=== PATIENT | male | born 1955 | race Caucasian/White ===

== ENCOUNTER 2019-06-09 10:39 | Inpatient (IN) | payer BC ==
[~2019-06-09] VITALS: Ht 170.1 cm; Wt 88.5 kg
[2019-06-09] MEDS ORDERED: AZOR 5-20 MG T1 EACH PO (12:11)
[2019-06-09] MEDS ORDERED: CRESTOR10 M1 PO (12:11)
[2019-06-09] MEDS ORDERED: OMEPRAZOLE20 M2 PO (12:12)
[2019-06-09] MEDS ORDERED: BYSTOLIC10 MG PO (12:12)
[2019-06-09] MEDS ORDERED: ASPIRIN CHEWABL81 MG PO (12:13)
[2019-06-09] MEDS ORDERED: MONTELUKAST SOD10 MG PO (12:13)
--- NOTE | 2019-06-09 12:29 | NUR ---
MSADMTime: N A 64 year old MALE admitted to under services of JOSEPHINE VASQUEZ DO. Pt. arrived via ambulatory from [place]. Chief complaint: ALCOHOL WITHDRAWAL. YASMINE COE
--- NOTE | 2019-06-09 13:31 | NUR ---
PATIENT MEETS [facility]. CIWA=15. [place] STAFF PROVIDED PATIENT WITH REFERRAL OPTIONS AND ALSO INFORMATION ON THE [facility] SHOT. PATIENT IS UNDECIDED ON HIS AFTERCARE PLAN. [facility] STAFF WILL FOLLOW UP WITH PATIENT. YESSY BRADEN B.A. LUMP RECEIVER
[2019-06-09 13:41] LABS: BASO % 0.4 % (0.0-1.0); HEMOGLOBIN 14.9 g/dl (14.0-18.0); LYMPH # 1.2 10*3/uL (1.3-4.4); LYMPH % 21.4 % (27.0-41.0); MEAN CELL VOLUME 95.7 fl (80.0-94.0); MEAN CORPUSCULAR HGB 32.4 pg (27.0-31.0); MEAN CORPUSCULAR HGB CONC 33.9 g/dl (33.0-37.0); MONO # 0.4 10*3/uL (0.1-1.0); MONO % 7.8 % (3.0-9.0); NEUT % 70.2 % (47.0-73.0); PLATELET COUNT AUTOMATED 123 10*3/uL (130-400); RED CELL DISTRI WIDTH 12.8 % (0-14.5); WHITE BLOOD COUNT 5.6 10*3/uL (4.8-10.8)
[2019-06-09 13:42] LABS: BILIRUBIN NEGATIVE (NEGATIVE); BLOOD TRACE-INTACT (NEGATIVE); CLARITY SL CLOUDY (CLEAR); COLOR YELLOW (YELLOW); GLUCOSE NEGATIVE (NEGATIVE); KETONE 2+ (NEGATIVE); LEUKO ESTERASE NEGATIVE (NEGATIVE); NITRITE NEGATIVE (NEGATIVE); SPECIFIC GRAVITY >= 1.030 (1.005-1.030)
[2019-06-09 13:50] LABS: INTERNATIONAL NORM RATIO 0.9 (2.0-3.5)
[2019-06-09 13:51] LABS: URINE AMPHETAMINES < 1000 (1000ng/ml); URINE BARBITURATES < 200 (200ng/ml); URINE BENZODIAZEPINES < 200 (200ng/ml); URINE CANNABINOIDS (THC) < 50 (50ng/ml); URINE COCAINE < 300 (300ng/ml); URINE METHADONE < 300 (300ng/ml); URINE OPIATES < 300 (300ng/ml)
[2019-06-09 13:56] LABS: ALBUMIN 4.6 gm/dl (3.1-4.5); ALKALINE PHOSPHATASE 59 U/L (45-117); BUN 17 mg/dl (7-24); CHLORIDE 102 mmol/L (98-107); CREATININE 0.87 mg/dL (0.70-1.30); POTASSIUM 3.7 mmol/L (3.5-5.1); SGOT/AST 165 IU/L (3-35); SGPT/ALT 110 U/L (12-78); SODIUM 139 mmol/L (136-145); TOTAL PROTEIN 7.9 gm/dL (6.4-8.2)
[2019-06-09 13:57] LABS: URINE PHENCYCLIDINE < 25 (25ng/ml)
[2019-06-09 14:04] LABS: BACTERIA TRACE; MUCOUS 2+; WBC 0-2 wbc/hpf (0-5)
[2019-06-09 16:00] VITALS: BP 133/79
--- NOTE | 2019-06-09 17:16 | NUR ---
ZOFRAN GIVEN FOR C/O NAUSEA. WILL MONITOR.
--- NOTE | 2019-06-09 19:39 | NUR ---
SCHEDULED PO ATIVAN ADMINISTERED PER ORDER. PATIENT HAS VISIBLE TREMORS AND STATES THEY ARE GETTING PROGRESSIVELY WORSE, BUT RATES THEM "MILD." MVI BAG STILL INFUSING. SHIFT ASSESSMENT COMPLETE AT THIS TIME. PATIENT DENIES ANY OTHER NEEDS. PT EDUCATED TO CALL RN IF S/S PROGRESS/WORSEN. DISCUSSED AVAILABLE PRN MEDICATIONS. PATIENT WANTS TO GIVE PO ATIVAN TIME TO WORK AND STATES HE WILL NOTIFY RN IF SYMPTOMS REMAIN. WILL MONITOR. CALL LIGHT LEFT IN REACH.
[2019-06-09 20:00] VITALS: BP 140/79
--- NOTE | 2019-06-09 20:41 | NUR ---
IV MVI BAG COMPLETE AT THIS TIME. IV SITE FLUSHED WITH NSS PER ORDER. SL ZOFRAN ADMINISTERED FOR C/O NAUSEA W/ SMALL AMOUNT OF EMESIS. VISIBLE TREMORS PERSIST & PATIENT STATES THEY FEEL WORSE. IV ATIVAN ADMINISTERED AT THIS TIME FOR DTs. PATIENT STATES HE DRINKS A HALF GALLON OF VODKA EVERY 3 DAYS AND ABOUT A 6 PACK OF BEER PER WEEK. STATES HIS LAST DRINK WAS TODAY (06/09) AT 0700. PATIENT EDUCATED ABOUT S/S TO NOTIFY RN. WILL MONITOR. CALL LIGHT IN REACH. ICE WATER, GINGERALE, SODA CRACKERS, AND EMESIS BASIN PROVIDED AT THIS TIME.
--- NOTE | 2019-06-09 21:39 | NUR ---
PT ASLEEP IN BED. RESPIRATIONS EASY. NO S/S OF DISTRESS NOTED. EARLIER MEDICATIONS APPEAR EFFECTIVE. WILL MONITOR. CALL LIGHT IN REACH.
--- NOTE | 2019-06-09 23:19 | NUR ---
PO ATIVAN ADMINISTERED PER ORDER AT THIS TIME. PT DENIES ANY OTHER NEEDS. WILL MONITOR. CALL LIGHT LEFT IN REACH.
[2019-06-10] VITALS: BP 157/79
[2019-06-10 04:00] VITALS: BP 135/86
--- NOTE | 2019-06-10 04:13 | NUR ---
PT MEDICATED WITH PO ZOFRAN PER PRN ORDER FOR C/O NAUSEA. NO EMESIS AT THIS POINT IN TIME. SCHEDULED PO ATIVAN ALSO ADMINSITERED PER ORDER. WILL MONITOR EFFECTIVENESS. CALL LIGHT LEFT IN REACH.
[2019-06-10 07:09] LABS: ALBUMIN 3.7 gm/dl (3.1-4.5); ALKALINE PHOSPHATASE 45 U/L (45-117); BUN 17 mg/dl (7-24); CHLORIDE 103 mmol/L (98-107); CREATININE 0.74 mg/dL (0.70-1.30); POTASSIUM 3.7 mmol/L (3.5-5.1); SGOT/AST 116 IU/L (3-35); SGPT/ALT 86 U/L (12-78); SODIUM 138 mmol/L (136-145); TOTAL PROTEIN 6.7 gm/dL (6.4-8.2)
[2019-06-10 08:00] VITALS: BP 140/82
--- NOTE | 2019-06-10 08:03 | NUR ---
Patient displaying withdrawal symptoms, including: irritability, anxiousness, restlessness and agitation, complicated by impulsive behavior. Patient scores a 5 on the withdrawal scale. Scheduled/PRN medications provided, doctor notified of patient's agitation and AMA potential. Will continue to monitor medication effectiveness.
--- NOTE | 2019-06-10 10:15 | NUR ---
PT REQUESTED AND RECEIVED PO ZOFRAN PER PRN ORDER FOR C/O NAUSEA. ALSO ADMINISTERED IV ATIVAN PER PRN ORDER FOR DT'S. VISIBLE TREMORS PERSIST. INCREASED ANXIETY PER PT. WILL MONITOR EFFECTIVENESS. RESPIRATIONS EASY, REGULAR ON RA. CALL LIGHT WITHIN REACH.
[2019-06-10] MEDS ORDERED: AMLODIPINE-BEN1 EACH PO (10:50)
[2019-06-10] MEDS ORDERED: FLONASE ALLERG9.9 ML NAS (10:54)
--- NOTE | 2019-06-10 11:00 | NUR ---
Patient resting. Responding to scheduled medications with fewer complaints of pain and anxiety.
[2019-06-10 12:00] VITALS: BP 125/78
--- NOTE | 2019-06-10 14:00 | NUR ---
Patient resting. Responding to scheduled medications with fewer complaints of pain and anxiety.
[2019-06-10 16:00] VITALS: BP 132/72
--- NOTE | 2019-06-10 16:32 | NUR ---
[place] STAFF FOLLOWED UP WITH PATIENT TO DISCUSS HIS AFTERCARE PLAN. [place] STAFF PROVIDED PATIENT WITH REFERRAL OPTIONS. PATIENT IS CONSIDERING RESIDENTIAL TREATMENT FOR HIS AFTERCARE PLAN. PATIENT WANTS TIME TO DISCUSS THE OPTION WITH HIS FAMILY. [place] STAFF WILL FOLLOW BACK UP WITH PATIENT. YESSY BRADEN B.A. DIRECTOR CONSUMER AFFAIRS
[2019-06-10 20:00] VITALS: BP 133/84; BP 142/78
--- NOTE | 2019-06-10 23:05 | NUR ---
PATIENT REQUESTING MEDICATION FOR SLEEP AND RESTLESSNESS.TRAZODONE AND ROBAXIN ADMINISTERED PRESCRIBED. WILL MONITOR FOR EFFECTIVENESS.
[2019-06-11] VITALS: BP 130/77
--- NOTE | 2019-06-11 00:05 | NUR ---
PATIENT RESTING WITH EYES CLOSED AT THIS TIME. RESPIRATIONS EASY AND UNLABORED ON ROOM AIR. BED LOCKED IN LOWEST POSITION. CALL LIGHT WITHIN REACH. WILL MONITOR.
--- NOTE | 2019-06-11 04:13 | NUR ---
PATIENT ANXIOUS AND HAVING TREMORS. COMPLAINTS OF RESTLESSNESS AND NAUSEA. IV ATIVAN AND ZOFRAN ADMINISTERED PRESCRIBED. WILL MONITOR FOR EFFECTIVENESS.
[2019-06-11] MEDS ORDERED: PRILOSEC20 M1 PO (04:18)
--- NOTE | 2019-06-11 05:11 | NUR ---
24 HR chart check completed.
[2019-06-11 06:58] LABS: ALBUMIN 3.4 gm/dl (3.1-4.5); ALKALINE PHOSPHATASE 53 U/L (45-117); BUN 14 mg/dl (7-24); CHLORIDE 103 mmol/L (98-107); CREATININE 0.91 mg/dL (0.70-1.30); POTASSIUM 3.1 mmol/L (3.5-5.1); SGOT/AST 76 IU/L (3-35); SGPT/ALT 72 U/L (12-78); SODIUM 138 mmol/L (136-145); TOTAL PROTEIN 6.4 gm/dL (6.4-8.2)
[2019-06-11 08:00] VITALS: BP 132/78
--- NOTE | 2019-06-11 08:30 | NUR ---
Patient resting quietly with no c/o discomfort. Respirations easy and regular. Vital signs stable. No overt distress. [place] R
--- NOTE | 2019-06-11 11:26 | NUR ---
[facility] STAFF SPOKE WITH PATIENT ABOUT HIS DISCHARGE PLAN. PATIENT IS INTERESTED IN GOING TO [facility], HOWEVER HE WANTED SOME OTHER RESIDENTIAL TREATMENT FACILITIES THAT WILL ALSO MEET HIS NEEDS. PATIENT STATED THAT HE WILL CONTACT [facility] STAFF BY 1:00PM TO MAKE HIS FINAL DECISION. YESSY BRADEN B.A. CLOTH HAND
--- NOTE | 2019-06-11 13:29 | NUR ---
Discharge instructions reviewed with patient/family. Patient receptive and verbalizes understanding. Follow-up care arranged. Written instructions given to patient/family. [place]
== END 2019-06-11 13:29 | disposition home or self-care (01) | DRG 897 ==
LOC: 4E 10:39
PROVIDERS: Student in an Organized Health Care Education/Training Program; ADMIT Internal Medicine
DX: F10.239 Alcohol dependence with withdrawal, unspecified (principal); E88.09 Other disorders of plasma-protein metabolism, not elsewhere classified; R11.2 Nausea with vomiting, unspecified; R80.9 Proteinuria, unspecified; K21.9 Gastro-esophageal reflux disease without esophagitis; J30.2 Other seasonal allergic rhinitis; R74.0 Nonspecific elevation of levels of transaminase and lactic acid dehydrogenase [LDH]; E80.6 Other disorders of bilirubin metabolism; E66.9 Obesity, unspecified; Z68.34 Body mass index [BMI] 34.0-34.9, adult; I10 Essential (primary) hypertension; E78.5 Hyperlipidemia, unspecified; R73.9 Hyperglycemia, unspecified; R00.0 Tachycardia, unspecified; Z90.89 Acquired absence of other organs; Z98.52 Vasectomy status; Z98.42 Cataract extraction status, left eye; Z98.41 Cataract extraction status, right eye; Z87.891 Personal history of nicotine dependence; Z79.82 Long term (current) use of aspirin; Z79.899 Other long term (current) drug therapy; Z68.30 Body mass index [BMI] 30.0-30.9, adult

== ENCOUNTER → 2019-10-15 | Outpatient (CLI) | payer BC ==
[~2019-10-15] MED LIST: ALIGN4 M1 PO; AMLODIPINE-BEN1 EACH PO; ASPIRIN CHEWABL81 MG PO; AZOR 5-20 MG T1 EACH PO; BYSTOLIC10 MG PO; CENTRAVITES 501 EACH PO; CRESTOR10 M1 PO; DUPIXENT200 MG/1.1 SQ; FIBER625 MG PO; FLONASE ALLERG9.9 ML NAS; MONTELUKAST SOD10 MG PO; NALTREXONE50 MG PO; NATURE'S BLEND F1 MG PO; OMEPRAZOLE20 M2 PO; PRILOSEC20 M1 PO; VITAMIN B COMP1 EACH PO
--- NOTE | 2019-10-15 12:15 | NUR ---
INFORMED CONSENT OBTAINED FOR EXERCISE CARDIOLITE STRESS TEST WITH DR. MONTEZ. RESTING EKG SINUS GLORIA WITH A SUPINE HR OF 55 WITH BP OF 124/72 AND HR OF 67 WITH BP OF 120/70 IN STANDING POSITION. PT COMPLETED 10:30 OF A YONATHAN PROTOCOL WITH COMPLETION OF 1:30 OF STAGE IV AT 4.2 MPH AND 16% GRADE. REACHED A PEAK HR OF 150 WHICH IS 95% OF PREDICTED MAX WITH A PEAK BP OF 154/74. TEST TERMINATED BECAUSE OF FATIGUE. HAD NO CHEST PAIN OR ANY EKG CHANGES. HAS A GOOD EXERCISE TOLERANCE. LAST RECOVERY HR OF 98 WITH BP OF 132/68. TO NUCLEAR MEDICINE IN STABLE CONDITION.
== END | disposition home or self-care (01) ==
LOC: CARD 00:49
DX: I10 Essential (primary) hypertension (principal); R94.31 Abnormal electrocardiogram [ECG] [EKG]; E78.00 Pure hypercholesterolemia, unspecified; F10.11 Alcohol abuse, in remission; R00.1 Bradycardia, unspecified; Z82.49 Family history of ischemic heart disease and other diseases of the circulatory system

== ENCOUNTER → 2019-11-05 | Outpatient (CLI) | payer BC ==
[2019-11-05 09:18] LABS: BASO % 0.4 % (0.0-1.0); EOS # 0.2 10*3/uL (0.0-0.4); EOS % 3.3 % (1.0-4.0); HEMOGLOBIN 15.2 g/dl (14.0-18.0); LYMPH # 2.8 10*3/uL (1.3-4.4); MEAN CELL VOLUME 90.9 fl (80.0-94.0); MEAN PLATELET VOLUME 11.5 fl (9.6-12.3); MONO # 0.5 10*3/uL (0.1-1.0); MONO % 7.3 % (3.0-9.0); NEUT # 3.2 10*3/uL (2.3-7.9); NEUT % 47.7 % (47.0-73.0); PLATELET COUNT AUTOMATED 211 10*3/uL (130-400); RED BLOOD COUNT 5.06 10*6/uL (4.50-5.90); RED CELL DISTRI WIDTH 12.2 % (0-14.5); WHITE BLOOD COUNT 6.7 10*3/uL (4.8-10.8)
[2019-11-05 09:39] LABS: CHLORIDE 108 mmol/L (98-107); POTASSIUM 4.4 mmol/L (3.5-5.1); SODIUM 143 mmol/L (136-145)
[2019-11-05 09:57] LABS: ALKALINE PHOSPHATASE 47 U/L (45-117); BUN 13 mg/dl (7-24); CHOLESTEROL 130 mg/dL (<200); CREATININE 1.08 mg/dL (0.70-1.30); HDL CHOLESTEROL 63 mg/dl (40-60); LDL CHOLESTEROL 47 mg/dL (9-159); SGOT/AST 14 IU/L (3-35); SGPT/ALT 24 U/L (12-78); TRIGLYCERIDES 101 mg/dl (<150); VLDL CHOLESTEROL 20 mg/dL (6-40)
== END | disposition home or self-care (01) ==
LOC: LAB 07:39
PROVIDERS: Registered Nurse Flight
DX: Z12.5 Encounter for screening for malignant neoplasm of prostate (principal); I10 Essential (primary) hypertension; E78.00 Pure hypercholesterolemia, unspecified

== ENCOUNTER 2020-06-27 09:56 | Emergency (ER) | payer BC ==
[~2020-06-27] VITALS: Ht 170.1 cm; Wt 83.9 kg
[2020-06-27 10:30] LABS: BASO % 0.3 % (0.0-1.0); EOS # 0.2 10*3/uL (0.0-0.4); EOS % 1.4 % (1.0-4.0); HEMATOCRIT 42.3 % (42.0-52.0); LYMPH % 16.8 % (27.0-41.0); MEAN CELL VOLUME 88.1 fl (80.0-94.0); MEAN CORPUSCULAR HGB 29.2 pg (27.0-31.0); MEAN CORPUSCULAR HGB CONC 33.1 g/dl (33.0-37.0); MEAN PLATELET VOLUME 10.7 fl (9.6-12.3); MONO # 0.8 10*3/uL (0.1-1.0); MONO % 6.9 % (3.0-9.0); NEUT # 8.8 10*3/uL (2.3-7.9); NEUT % 74.3 % (47.0-73.0); PLATELET COUNT AUTOMATED 207 10*3/uL (130-400); RED CELL DISTRI WIDTH 12.4 % (0-14.5); WHITE BLOOD COUNT 11.8 10*3/uL (4.8-10.8)
[2020-06-27 10:42] LABS: ALKALINE PHOSPHATASE 44 U/L (45-117); BUN 15 mg/dl (7-24); CHLORIDE 106 mmol/L (98-107); CREATININE 0.99 mg/dL (0.70-1.30); POTASSIUM 5.1 mmol/L (3.5-5.1); SGOT/AST 15 IU/L (3-35); SGPT/ALT 24 U/L (12-78); SODIUM 138 mmol/L (136-145)
[2020-06-27 12:33] LABS: BILIRUBIN NEGATIVE; BLOOD NEGATIVE (NEGATIVE); CLARITY SL CLOUDY (CLEAR); COLOR YELLOW (YELLOW); GLUCOSE NEGATIVE; KETONE NEGATIVE
[2020-06-27 12:34] LABS: LEUKO ESTERASE NEGATIVE (NEGATIVE); NITRITE NEGATIVE (NEGATIVE); UROBILINOGEN 0.2 E.U./dl (0.2-1.0)
[2020-06-27 12:41] LABS: BACTERIA 1+; CALCIUM OXALATE CRYSTALS TRACE; MUCOUS 2+
[2020-06-27] MEDS ORDERED: PERCOCET 5-3251 EACH PO (12:51)
[2020-06-27] MEDS ORDERED: IBU800 MG PO (12:51)
== END 2020-06-27 13:12 | disposition home or self-care (01) ==
LOC: ED 09:56
PROVIDERS: Nurse Practitioner Family
DX: S43.102A Unspecified dislocation of left acromioclavicular joint, initial encounter (principal); I10 Essential (primary) hypertension; E78.5 Hyperlipidemia, unspecified; R79.1 Abnormal coagulation profile; Z79.899 Other long term (current) drug therapy; Z79.82 Long term (current) use of aspirin; Z87.892 Personal history of anaphylaxis; W11.XXXA Fall on and from ladder, initial encounter; Y93.89 Activity, other specified; Y92.89 Other specified places as the place of occurrence of the external cause; Y99.8 Other external cause status

== ENCOUNTER → 2020-11-14 | Outpatient (CLI) | payer BC ==
[~2020-11-14] MED LIST changes: +IBU800 MG PO; +PERCOCET 5-3251 EACH PO
[2020-11-14 13:52] LABS: BUN 16 mg/dl (7-24); CHLORIDE 106 mmol/L (98-107); CREATININE 0.91 mg/dL (0.70-1.30); POTASSIUM 4.1 mmol/L (3.5-5.1); SODIUM 141 mmol/L (136-145)
== END | disposition home or self-care (01) ==
LOC: LAB 12:43
PROVIDERS: ATTEND Internal Medicine Cardiovascular Disease
DX: I10 Essential (primary) hypertension (principal)

== ENCOUNTER → 2020-12-08 | Outpatient (CLI) | payer BC ==
[2020-12-08 08:55] LABS: HEMATOCRIT 43.7 % (42.0-52.0); MEAN CELL VOLUME 89.7 fl (80.0-94.0); MEAN CORPUSCULAR HGB 29.6 pg (27.0-31.0); MEAN PLATELET VOLUME 11.4 fl (9.6-12.3); RED BLOOD COUNT 4.87 10*6/uL (4.50-5.90); RED CELL DISTRI WIDTH 12.4 % (0-14.5); WHITE BLOOD COUNT 6.1 10*3/uL (4.8-10.8)
[2020-12-08 09:15] LABS: ALBUMIN 3.9 gm/dl (3.1-4.5); ALKALINE PHOSPHATASE 49 U/L (45-117); BUN 14 mg/dl (7-24); CHLORIDE 108 mmol/L (98-107); CHOLESTEROL 121 mg/dL (<200); CREATININE 1.04 mg/dL (0.70-1.30); HDL CHOLESTEROL 53 mg/dl (40-60); LDL CHOLESTEROL 42 mg/dL (9-159); POTASSIUM 4.2 mmol/L (3.5-5.1); SGOT/AST 12 IU/L (3-35); SGPT/ALT 22 U/L (12-78); SODIUM 142 mmol/L (136-145); TRIGLYCERIDES 128 mg/dl (<150); VLDL CHOLESTEROL 26 mg/dL (6-40)
== END | disposition home or self-care (01) ==
LOC: LAB 07:35
PROVIDERS: ATTEND Nurse Practitioner Family
DX: Z12.5 Encounter for screening for malignant neoplasm of prostate (principal); I10 Essential (primary) hypertension; E78.00 Pure hypercholesterolemia, unspecified